=== PATIENT | female | born 1940 | race Caucasian/White ===

== ENCOUNTER 2017-12-10 13:23 | Outpatient (REF) | payer MEDICARE, SELFPAY ==
[2017-12-10 23:22] LABS: HCT 48.9 % (36.0-46.0); Mean Corp. HGB Concentration 32.7 g/dL (32.0-36.0); Mean Corpuscular Hemoglobin 29.9 pg (27.0-33.0); Mean Corpuscular Volume 91.4 fL (80-95); Mean Platelet Volume 11.3 fL (8.0-11.0); Platelet Count 244 x1000/uL (130-400); RBC 5.35 m/cumm (4.00-5.20); RBC Distribution Width 14.1 % (11.7-14.6); White Blood Cell Count 4.14 k/cumm (4.4-10.8)
[2017-12-10 23:43] LABS: Iron 130 ug/dL (50-175); Total Iron Binding Capacity 309 ug/dL (250-450); Transferrin Sat 42 % (15-50)
[2017-12-10 23:46] LABS: Ferritin 27 ng/mL (8-388)
== END 2017-12-10 13:43 ==
LOC: NCHCN 13:23
PROVIDERS: PCP Internal Medicine; Visit Provider Internal Medicine
DX: H61.21 Impacted cerumen, right ear (principal); M20.10 Hallux valgus (acquired), unspecified foot; D50.9 Iron deficiency anemia, unspecified
CPT/HCPCS: 85027; 82728; 83540; 83550

== ENCOUNTER 2018-03-26 16:22 | Outpatient (REF) | payer MEDICARE, SELFPAY ==
[2018-03-26 22:48] LABS: Anion Gap 7.4 mmol/L (3-11); BUN 19 mg/dL (7-18); CO2 28.6 mmol/L (21.0-32.0); CREATININE 0.79 mg/dL (0.55-1.02); Calcium 10.2 mg/dL (8.5-10.1); Chloride 104 mmol/L (98-107); Cholesterol 222 mg/dL (50-200); Ferritin 12 ng/mL (8-388); Glucose 81 mg/dL (70-100); HDL Cholesterol 90 mg/dL (40-60); LDL CHOLESTEROL 112 mg/dL (<100); Potassium 4.4 mmol/L (3.5-5.1); Sodium 140 mmol/L (136-145); Triglyceride 78 mg/dL (30-150); Vitamin B12 315 pg/mL (193-986)
[2018-03-26 23:00] LABS: HCT 44.5 % (36.0-46.0); HGB 14.7 g/dL (12.0-15.5); Mean Corpuscular Hemoglobin 30.1 pg (27.0-33.0); Platelet Count 253 x1000/uL (130-400); RBC 4.89 m/cumm (4.00-5.20); White Blood Cell Count 4.47 k/cumm (4.4-10.8)
== END 2018-03-26 16:42 ==
LOC: NCHCN 16:22
PROVIDERS: PCP Internal Medicine; Visit Provider Family Medicine
DX: D50.9 Iron deficiency anemia, unspecified (principal); K21.9 Gastro-esophageal reflux disease without esophagitis; I10 Essential (primary) hypertension; E03.9 Hypothyroidism, unspecified
CPT/HCPCS: 80048; 80061; 83721; 85027; 82607; 82728

== ENCOUNTER 2018-08-13 11:05 | Outpatient (REF) | payer MEDICARE, SELFPAY ==
[2018-08-13 21:10] LABS: Hemoglobin A1C 5.5 % (4.5-6.2)
[2018-08-13 21:35] LABS: TSH (W/Ref FT4) 1.72 uIU/mL (0.358-3.74); Vitamin B12 1991 pg/mL (193-986)
== END 2018-08-13 11:25 ==
LOC: NCHCN 11:05
PROVIDERS: PCP Internal Medicine; Visit Provider Family Medicine
DX: E03.9 Hypothyroidism, unspecified (principal); E53.8 Deficiency of other specified B group vitamins; R73.09 Other abnormal glucose; E83.52 Hypercalcemia
CPT/HCPCS: 82306; 82607; 83036; 84443

== ENCOUNTER 2019-09-04 14:33 | Outpatient (REF) | payer MEDICARE, SELFPAY ==
[2019-09-04 21:30] LABS: Anion Gap 7.1 mmol/L (3-11); BUN 21 mg/dL (7-18); CO2 27.9 mmol/L (21.0-32.0); CREATININE 1.03 mg/dL (0.55-1.02); Calcium 9.9 mg/dL (8.5-10.1); Calculated LDL 126 mg/dL (<100); Chloride 106 mmol/L (98-107); Cholesterol 209 mg/dL (<200); Estimated GFR 51.56 (mL/min/1.73m2); Glucose 94 mg/dL (74-106); HDL Cholesterol 74 mg/dL (40-60); Potassium 4.1 mmol/L (3.5-5.1); Sodium 141 mmol/L (136-145); TSH 1.15 uIU/mL (0.36-3.74); Triglyceride 47 mg/dL (<150)
== END 2019-09-04 14:53 ==
LOC: NCHCN 14:33
PROVIDERS: PCP Family Medicine; Visit Provider Family Medicine
DX: E03.9 Hypothyroidism, unspecified (principal); I10 Essential (primary) hypertension
CPT/HCPCS: 80048; 80061; 84443

== ENCOUNTER 2019-10-08 14:02 | Outpatient (REF) | payer MEDICARE, SELFPAY ==
[2019-10-08 19:50] LABS: Anion Gap 7.6 mmol/L (3-11); BUN 19 mg/dL (7-18); CO2 27.4 mmol/L (21.0-32.0); CREATININE 0.89 mg/dL (0.55-1.02); Chloride 106 mmol/L (98-107); Glucose 108 mg/dL (74-106); Potassium 4.4 mmol/L (3.5-5.1); Sodium 141 mmol/L (136-145)
== END 2019-10-08 14:22 ==
LOC: NCHCN 14:02
PROVIDERS: PCP Family Medicine; Visit Provider Family Medicine
DX: R94.4 Abnormal results of kidney function studies (principal)
CPT/HCPCS: 80048

== ENCOUNTER 2020-03-02 22:18 | Outpatient (REF) | payer MEDICARE, SELFPAY ==
[2020-03-02 21:36] LABS: Anion Gap 5.9 mmol/L (3-11); BUN 21 mg/dL (7-18); CO2 29.1 mmol/L (21.0-32.0); CREATININE 0.96 mg/dL (0.55-1.02); Calcium 9.9 mg/dL (8.5-10.1); Chloride 106 mmol/L (98-107); Estimated GFR 55.92 (mL/min/1.73m2); Glucose 88 mg/dL (74-106); HCT 43.9 % (36.0-46.0); HGB 14.2 g/dL (11.2-15.7); MCH 28.6 pg (27.0-33.0); MCHC 32.3 % (32.0-36.0); MCV 88.3 fL (80-95); MPV 11.2 fL (8.0-11.0); Platelet Count 246 10^3/uL (130-400); Potassium 4.7 mmol/L (3.5-5.1); RBC 4.97 10^6/uL (3.93-5.22); RDW 13.7 % (11.7-14.6); RDW-SD 43.8 fL; Sodium 141 mmol/L (136-145); TSH 1.66 uIU/mL (0.36-3.74); WBC 5.16 10^3/uL (4.4-10.8)
== END 2020-03-02 22:38 ==
LOC: NCHCN 22:18
PROVIDERS: PCP Family Medicine; Visit Provider Family Medicine
DX: R53.83 Other fatigue (principal); I10 Essential (primary) hypertension; D50.9 Iron deficiency anemia, unspecified
CPT/HCPCS: 80048; 85027; 84443

== ENCOUNTER 2020-08-13 16:42 | Outpatient (REF) | payer MEDICARE, SELFPAY ==
[2020-08-13 21:02] LABS: HCT 21.9 % (36.0-46.0); MCH 19.2 pg (27.0-33.0); MCV 73.7 fL (80-95); MPV 11.6 fL (8.0-11.0); Platelet Count 269 10^3/uL (130-400); RBC 2.97 10^6/uL (3.93-5.22); RDW 17.3 % (11.7-14.6); RDW-SD 46.3 fL
[2020-08-13 21:30] LABS: HGB 5.7 g/dL (11.2-15.7)
[2020-08-13 21:34] LABS: ALT 22 U/L (14-59); AST 18 U/L (15-37); Albumin 3.8 g/dL (3.4-5.0); Alkaline Phosphatase 47 U/L (46-116); Anion Gap 6.1 mmol/L (3-11); BUN 19 mg/dL (7-18); Bilirubin, Total 0.3 mg/dL (0.2-1.0); CO2 27.9 mmol/L (21.0-32.0); CREATININE 0.9 mg/dL (0.55-1.02); Calcium 9.5 mg/dL (8.5-10.1); Chloride 107 mmol/L (98-107); Glucose 85 mg/dL (74-106); Potassium 4.5 mmol/L (3.5-5.1); Sodium 141 mmol/L (136-145); Total Protein 5.9 g/dL (6.4-8.2)
== END 2020-08-13 16:43 | disposition home or self-care (01) ==
LOC: NCHCN 16:42
PROVIDERS: PCP Family Medicine; Visit Provider Family Medicine
DX: R53.83 Other fatigue (principal); R42 Dizziness and giddiness
CPT/HCPCS: 80053; 85027; 84443

== ENCOUNTER 2020-08-24 16:27 | Outpatient (REF) | payer MEDICARE, SELFPAY ==
[2020-08-24 21:26] LABS: HCT 36.7 % (36.0-46.0); HGB 10.6 g/dL (11.2-15.7); MCH 23.1 pg (27.0-33.0); MCHC 28.9 % (32.0-36.0); MPV 12.3 fL (8.0-11.0); Platelet Count 240 10^3/uL (130-400); RBC 4.59 10^6/uL (3.93-5.22); RDW 21.5 % (11.7-14.6); RDW-SD 59.8 fL; WBC 3.91 10^3/uL (4.4-10.8)
== END 2020-08-24 16:28 | disposition home or self-care (01) ==
LOC: NCHCN 16:27
PROVIDERS: PCP Family Medicine; Visit Provider Family Medicine
DX: D50.9 Iron deficiency anemia, unspecified (principal)
CPT/HCPCS: 85027

== ENCOUNTER 2020-10-15 08:07 | Outpatient (REF) | payer MEDICARE, SELFPAY ==
[2020-10-15 15:34] LABS: HCT 46.9 % (36.0-46.0); HGB 14.5 g/dL (11.2-15.7); MCH 26.1 pg (27.0-33.0); MCHC 30.9 % (32.0-36.0); MCV 84.4 fL (80-95); Platelet Count 201 10^3/uL (130-400); RBC 5.56 10^6/uL (3.93-5.22); RDW 19.5 % (11.7-14.6); RDW-SD 59.2 fL; WBC 5.65 10^3/uL (4.4-10.8)
[2020-10-15 17:05] LABS: BUN 28 mg/dL (7-18); CREATININE 0.8 mg/dL (0.55-1.02); Calcium 9.8 mg/dL (8.5-10.1); Calculated LDL 118 mg/dL (<100); Chloride 105 mmol/L (98-107); Cholesterol 193 mg/dL (<200); Glucose 98 mg/dL (74-106); HDL Cholesterol 61 mg/dL (40-60); Potassium 4.5 mmol/L (3.5-5.1); Sodium 141 mmol/L (136-145); Triglyceride 72 mg/dL (<150)
== END 2020-10-15 08:08 | disposition home or self-care (01) ==
LOC: NCHCN 08:07
PROVIDERS: PCP Family Medicine; Visit Provider Family Medicine
DX: I10 Essential (primary) hypertension (principal); D50.9 Iron deficiency anemia, unspecified
CPT/HCPCS: 80048; 80061; 85027

== ENCOUNTER 2021-04-07 21:25 | Outpatient (REF) | payer MEDICARE, SELFPAY ==
[2021-04-07 21:18] LABS: Abs Immature Grans 0.02 10^3/uL (0.0-0.06); Absolute Basophil Count 0.04 10^3/uL (0.0-0.2); Absolute Eosinophil Count 0.09 10^3/uL (0.0-0.7); Absolute Lymphocyte Count 0.72 10^3/uL (1.2-3.4); Absolute Monocyte Count 0.54 10^3/uL (0.1-0.8); Absolute Neutrophil Count 5.04 10^3/uL (1.2-6.7); Basophils % 0.6; Eosinophils % 1.4; HGB 15.7 g/dL (11.2-15.7); Immature Grans % 0.3; Lymphocytes % 11.2; MCH 28.1 pg (27.0-33.0); MCHC 31.4 % (32.0-36.0); MCV 89.4 fL (80-95); MPV 10.6 fL (8.0-11.0); Monocytes % 8.4; Neutrophils % 78.1; Nucleated RBC 0 %; Platelet Count 230 10^3/uL (130-400); RBC 5.59 10^6/uL (3.93-5.22); RDW-SD 42.5 fL; WBC 6.45 10^3/uL (4.4-10.8)
[2021-04-07 21:34] LABS: ALT 17 U/L (14-59); AST 15 U/L (15-37); Albumin 3.8 g/dL (3.4-5.0); Alkaline Phosphatase 60 U/L (46-116); Anion Gap 5.7 mmol/L (3-11); BUN 23 mg/dL (7-18); Bilirubin, Total 0.4 mg/dL (0.2-1.0); CO2 28.3 mmol/L (21.0-32.0); CREATININE 0.7 mg/dL (0.55-1.02); Calcium 10.2 mg/dL (8.5-10.1); Chloride 105 mmol/L (98-107); Glucose 90 mg/dL (74-106); Lipase 137 U/L (73-393); Potassium 4.8 mmol/L (3.5-5.1); Sodium 139 mmol/L (136-145); Total Protein 6.5 g/dL (6.4-8.2)
== END 2021-04-07 21:26 | disposition home or self-care (01) ==
LOC: NCHCN 21:25
PROVIDERS: PCP Family Medicine; Visit Provider Family Medicine
DX: R10.32 Left lower quadrant pain (principal)
CPT/HCPCS: 80053; 83690; 85025

== ENCOUNTER 2021-04-21 17:39 | Outpatient (REF) | payer MEDICARE, SELFPAY ==
[2021-04-21 21:25] LABS: Abs Immature Grans 0.01 10^3/uL (0.0-0.06); Absolute Basophil Count 0.05 10^3/uL (0.0-0.2); Absolute Eosinophil Count 0.06 10^3/uL (0.0-0.7); Absolute Lymphocyte Count 0.71 10^3/uL (1.2-3.4); Absolute Monocyte Count 0.54 10^3/uL (0.1-0.8); Absolute Neutrophil Count 2.59 10^3/uL (1.2-6.7); Basophils % 1.3; Eosinophils % 1.5; HCT 49.6 % (36.0-46.0); HGB 15.9 g/dL (11.2-15.7); Immature Grans % 0.3; Lymphocytes % 17.9; MCH 28.4 pg (27.0-33.0); MCHC 32.1 % (32.0-36.0); MCV 88.6 fL (80-95); MPV 10.5 fL (8.0-11.0); Monocytes % 13.6; Neutrophils % 65.4; Nucleated RBC 0 %; Platelet Count 244 10^3/uL (130-400); RDW 13.1 % (11.7-14.6); RDW-SD 42.7 fL; WBC 3.96 10^3/uL (4.4-10.8)
[2021-04-21 21:37] LABS: Anion Gap 7.6 mmol/L (3-11); BUN 22 mg/dL (7-18); CO2 27.4 mmol/L (21.0-32.0); CREATININE 0.7 mg/dL (0.55-1.02); Calcium 10.1 mg/dL (8.5-10.1); Chloride 105 mmol/L (98-107); Glucose 77 mg/dL (74-106); Potassium 4.6 mmol/L (3.5-5.1); Sodium 140 mmol/L (136-145)
[2021-04-21 22:01] LABS: Vitamin D 25 Total 49.5 ng/mL (30-100)
== END 2021-04-21 17:40 | disposition home or self-care (01) ==
LOC: NCHCN 17:39
PROVIDERS: PCP Family Medicine; Visit Provider Family Medicine
DX: E83.52 Hypercalcemia (principal); R10.32 Left lower quadrant pain; E53.8 Deficiency of other specified B group vitamins
CPT/HCPCS: 80048; 82306; 85025

== ENCOUNTER 2021-09-27 15:57 | Outpatient (REF) | payer MEDICARE, SELFPAY ==
[2021-09-27 15:26] LABS: Abs Immature Grans 0.02 10^3/uL (0.0-0.06); Absolute Basophil Count 0.05 10^3/uL (0.0-0.2); Absolute Eosinophil Count 0.28 10^3/uL (0.0-0.7); Absolute Lymphocyte Count 0.67 10^3/uL (1.2-3.4); Absolute Monocyte Count 0.56 10^3/uL (0.1-0.8); Absolute Neutrophil Count 2.26 10^3/uL (1.2-6.7); Basophils % 1.3; Eosinophils % 7.3; HCT 46.6 % (36.0-46.0); HGB 15.5 g/dL (11.2-15.7); Immature Grans % 0.5; Lymphocytes % 17.4; MCH 28.5 pg (27.0-33.0); MCHC 33.3 % (32.0-36.0); MCV 86 fL (80-95); MPV 10.8 fL (8.0-11.0); Monocytes % 14.6; Neutrophils % 58.9; Platelet Count 232 10^3/uL (130-400); RBC 5.44 10^6/uL (3.93-5.22); RDW 13.4 % (11.7-14.6); RDW-SD 42.2 fL; WBC 3.84 10^3/uL (4.4-10.8)
[2021-09-27 15:50] LABS: Anion Gap 8.9 mmol/L (3-11); BUN 20 mg/dL (7-18); CO2 30.1 mmol/L (21.0-32.0); CREATININE 0.7 mg/dL (0.55-1.02); Calcium 9.6 mg/dL (8.5-10.1); Calculated LDL 123 mg/dL (<100); Chloride 106 mmol/L (98-107); Cholesterol 201 mg/dL (<200); Glucose 93 mg/dL (74-106); HDL Cholesterol 72 mg/dL (40-60); Potassium 4.4 mmol/L (3.5-5.1); Sodium 145 mmol/L (136-145); TSH 1.53 uIU/mL (0.36-3.74); Triglyceride 32 mg/dL (<150)
== END 2021-09-27 15:58 | disposition home or self-care (01) ==
LOC: NCHCN 15:57
PROVIDERS: PCP Family Medicine; Visit Provider Family Medicine
DX: E03.9 Hypothyroidism, unspecified (principal); E04.2 Nontoxic multinodular goiter; D72.810 Lymphocytopenia; I10 Essential (primary) hypertension; E83.52 Hypercalcemia
CPT/HCPCS: 80048; 80061; 84443; 85025

== ENCOUNTER 2022-09-08 14:05 | Outpatient (REF) | payer MEDICARE, SELFPAY ==
[2022-09-08 15:21] LABS: ALT 19 U/L (14-59); AST 16 U/L (15-37); Albumin 3.4 g/dL (3.4-5.0); Alkaline Phosphatase 72 U/L (46-116); Anion Gap 6.6 mmol/L (3-11); BUN 18 mg/dL (7-18); Bilirubin, Total 0.6 mg/dL (0.2-1.0); CO2 29.4 mmol/L (21.0-32.0); CREATININE 0.8 mg/dL (0.55-1.02); Calcium 9.9 mg/dL (8.5-10.1); Calculated LDL 121 mg/dL (<100); Chloride 107 mmol/L (98-107); Cholesterol 199 mg/dL (<200); Estimated GFR 73.06 (mL/min/1.73m2); Glucose 90 mg/dL (74-106); HDL Cholesterol 72 mg/dL (40-60); Potassium 4.1 mmol/L (3.5-5.1); Sodium 143 mmol/L (136-145); TSH 2.35 uIU/mL (0.36-3.74); Total Protein 6.7 g/dL (6.4-8.2); Triglyceride 32 mg/dL (<150)
== END 2022-09-08 14:06 | disposition home or self-care (01) ==
LOC: NCHCN 14:05
PROVIDERS: PCP Family Medicine; Visit Provider Family Medicine
DX: I10 Essential (primary) hypertension (principal); E03.9 Hypothyroidism, unspecified; R53.83 Other fatigue; R94.4 Abnormal results of kidney function studies
CPT/HCPCS: 80053; 80061; 84443

== ENCOUNTER → 2023-01-03 01:35 | Outpatient (CLI) | payer MEDICARE, SELFPAY ==
--- NOTE | 2023-01-03 07:45 | DI.RAD_ITS ---
Exam(s) XR FOOT RT COMPLETE EXAM: XR FOOT RT COMPLETE CLINICAL HISTORY: painful hammer toe rt foot,m79.671,m20.41. TECHNIQUE: 2D digital imaging was performed of the right foot. Three images were obtained. AP, obl ique and lateral views were obtained. COMPARISON: No exams were available for comparison FINDINGS: BONES: No acute fracture is present. No bony destructive lesion is seen. There is a hallux valgus def ormity. There are hammertoe deformities of the 2nd through 4th toes. The 2nd and 3rd toes overlap o nto the 1st toe. JOINTS: No dislocation present. There are degenerative changes present characterized by joint space n arrowing and osteophytes. Subchondral sclerosis is also noted. The findings are most marked at the 2nd and 3rd TMT joints. SOFT TISSUE: Normal. IMPRESSION: 1. Marked hallux valgus deformity. 2. Degenerative changes of the foot. 3. Hammertoe deformities and overlapping of the toes as described above. DATA REPOSITORY: RADIATION DOSE DELIVERED:
== END ==
PROVIDERS: PCP Family Medicine; Visit Provider Podiatrist
DX: M20.41 Other hammer toe(s) (acquired), right foot (principal); M79.671 Pain in right foot
CPT/HCPCS: 73630

== ENCOUNTER 2023-07-17 14:46 | Outpatient (REF) | payer MEDICARE, SELFPAY ==
[2023-07-17 21:59] LABS: HCT 43.7 % (36.0-46.0); HGB 13.7 g/dL (11.2-15.7); MCHC 31.4 % (32.0-36.0); MCV 83 fL (80-95); MPV 10.9 fL (8.0-11.0); Platelet Count 303 10^3/uL (130-400); RBC 5.27 10^6/uL (3.93-5.22); RDW 15.7 % (11.7-14.6); RDW-SD 47.2 fL
[2023-07-17 22:53] LABS: Anion Gap 7.4 mmol/L (3-11); BUN 21 mg/dL (7-18); CO2 28.6 mmol/L (21.0-32.0); CREATININE 0.8 mg/dL (0.55-1.02); Calcium 10.3 mg/dL (8.5-10.1); Calculated LDL 140 mg/dL (<100); Chloride 105 mmol/L (98-107); Cholesterol 234 mg/dL (<200); Estimated GFR 72.61 (mL/min/1.73m2); Glucose 113 mg/dL (74-106); HDL Cholesterol 80 mg/dL (40-60); Potassium 4.4 mmol/L (3.5-5.1); Sodium 141 mmol/L (136-145); Triglyceride 72 mg/dL (<150); Vitamin B12 1245 pg/mL (193-986)
== END 2023-07-17 14:47 | disposition home or self-care (01) ==
LOC: NCHCN 14:46
PROVIDERS: PCP Family Medicine; Visit Provider Family Medicine
DX: E78.5 Hyperlipidemia, unspecified (principal); K92.1 Melena
CPT/HCPCS: 80048; 80061; 85027; 82607

== ENCOUNTER 2023-09-07 21:09 | Outpatient (REF) | payer MEDICARE, SELFPAY ==
[2023-09-07 21:37] LABS: Abs Immature Grans 0.01 10^3/uL (0.0-0.06); Absolute Basophil Count 0.06 10^3/uL (0.0-0.2); Absolute Eosinophil Count 0.12 10^3/uL (0.0-0.7); Absolute Lymphocyte Count 0.91 10^3/uL (1.2-3.4); Absolute Monocyte Count 0.67 10^3/uL (0.1-0.8); Absolute Neutrophil Count 4.34 10^3/uL (1.2-6.7); HCT 45.6 % (36.0-46.0); HGB 14.4 g/dL (11.2-15.7); Immature Grans % 0.2 %; Lymphocytes % 14.9 %; MCH 25.9 pg (27.0-33.0); MCHC 31.6 % (32.0-36.0); MCV 82 fL (80-95); MPV 10.7 fL (8.0-11.0); Neutrophils % 70.9 %; Platelet Count 260 10^3/uL (130-400); RBC 5.55 10^6/uL (3.93-5.22); RDW 14.7 % (11.7-14.6); RDW-SD 44.2 fL; WBC 6.11 10^3/uL (4.4-10.8)
[2023-09-07 21:45] LABS: ALT 19 U/L (14-59); AST 17 U/L (15-37); Albumin 3.9 g/dL (3.4-5.0); Alkaline Phosphatase 57 U/L (46-116); Anion Gap 6.4 mmol/L (3-11); BUN 19 mg/dL (7-18); Bilirubin, Total 0.44 mg/dL (0.2-1.0); CO2 29.6 mmol/L (21.0-32.0); CREATININE 0.8 mg/dL (0.55-1.02); Calcium 10.5 mg/dL (8.5-10.1); Chloride 102 mmol/L (98-107); Estimated GFR 72.61 (mL/min/1.73m2); Glucose 115 mg/dL (74-106); Lipase 51 U/L (16-77); Potassium 4.5 mmol/L (3.5-5.1); Sodium 138 mmol/L (136-145)
== END 2023-09-07 21:10 | disposition home or self-care (01) ==
LOC: NCHCN 21:09
PROVIDERS: PCP Family Medicine; Visit Provider Family Medicine
DX: R10.13 Epigastric pain (principal)
CPT/HCPCS: 80053; 83690; 85025

== ENCOUNTER 2024-01-10 14:54 | Outpatient (REF) | payer MEDICARE, SELFPAY ==
[2024-01-10 18:17] LABS: HCT 45.8 % (36.0-46.0); HGB 14.3 g/dL (11.2-15.7); MCH 25.8 pg (27.0-33.0); MCHC 31.2 % (32.0-36.0); MCV 83 fL (80-95); MPV 10.8 fL (8.0-11.0); Platelet Count 242 10^3/uL (130-400); RBC 5.55 10^6/uL (3.93-5.22); RDW 15.4 % (11.7-14.6); RDW-SD 46.5 fL
[2024-01-10 20:19] LABS: Anion Gap 2.9 mmol/L (3-11); BUN 18 mg/dL (7-18); CO2 32.1 mmol/L (21.0-32.0); CREATININE 0.9 mg/dL (0.55-1.02); Calcium 10.4 mg/dL (8.5-10.1); Chloride 107 mmol/L (98-107); Estimated GFR 63.04 (mL/min/1.73m2); Glucose 96 mg/dL (74-106); Potassium 4.5 mmol/L (3.5-5.1); Sodium 142 mmol/L (136-145)
[2024-01-10 20:52] LABS: Calculated LDL 115 mg/dL (<100); Cholesterol 209 mg/dL (<200); HDL Cholesterol 75 mg/dL (40-60); Triglyceride 96 mg/dL (<150); Vitamin D 25 Total 38.6 ng/mL (30-100)
== END 2024-01-10 14:55 | disposition home or self-care (01) ==
LOC: NCHCN 14:54
PROVIDERS: PCP Family Medicine; Visit Provider Family Medicine
DX: E83.52 Hypercalcemia (principal); E78.5 Hyperlipidemia, unspecified; D50.9 Iron deficiency anemia, unspecified
CPT/HCPCS: 80048; 80061; 82306; 85027

== ENCOUNTER 2024-07-15 13:08 | Outpatient (REF) | payer MEDICARE, SELFPAY ==
[2024-07-15 14:41] LABS: Calculated LDL 126 mg/dL (<100); Cholesterol 217 mg/dL (<200); HDL Cholesterol 75 mg/dL (>or=50); TSH 1.46 uIU/mL (0.36-3.74); Triglyceride 83 mg/dL (<150)
== END 2024-07-15 13:09 | disposition home or self-care (01) ==
LOC: NCHCN 13:08
PROVIDERS: PCP Family Medicine; Visit Provider Family Medicine
DX: E78.5 Hyperlipidemia, unspecified (principal); E03.9 Hypothyroidism, unspecified
CPT/HCPCS: 80061; 84443